=== PATIENT | female | born 1965 | race Caucasian/White ===

== ENCOUNTER 2023-11-23 22:13 | Emergency (ER) | payer SELFPAY ==
[~2023-11-23] VITALS: Ht 162.6 cm; Wt 90.0 kg
[2023-11-23 22:16] VITALS: TEMP 98.4; O2SAT 97
[2023-11-23] MEDS: KETOROLAC 30MG/ML VIAL IM ONE (22:30)
[2023-11-23] MEDS ORDERED: ALPRAZOLAM 0.5 MG TABLET PO ONE (22:30)
[2023-11-23] MEDS: ALPRAZOLAM 0.25 MG TABLET PO NR (22:45)
[2023-11-23 23:08] LABS: BASOPHILS % 0.6 % (0.0-2.0); EOSINOPHILS % 2.6 % (0.0-5.0); HEMATOCRIT. 42.2 % (36.0-48.0); HEMOGLOBIN. 14.2 g/dL (12.0-16.0); LYMPHOCYTES % 24.6 % (20.0-50.0); MEAN CORPUSCULAR HEMOGLOBIN 29.3 pg (28.0-32.0); MEAN CORPUSCULAR HGB CONC 33.6 g/dL (31.0-37.0); MEAN CORPUSCULAR VOLUME 87.1 fL (81.0-99.0); MEAN PLATELET VOLUME 8.3 fl (7.4-10.4); MONOCYTES % 7.6 % (2.0-8.0); NEUTROPHILS % 64.6 % (40.0-76.0); PLATELET 179 x1000/uL (130-400); RED BLOOD CELL COUNT 4.85 mill/uL (4.2-5.4); RED CELL DISTRIBUTION WIDTH 13.3 % (11.6-14.6); WHITE BLOOD COUNT 9.9 x1000/uL (4.5-11.0)
[2023-11-23 23:13] LABS: CHLORIDE 102 mEq/L (98-107); POTASSIUM 3.8 mEq/L (3.5-5.1); SODIUM 134 mEq/L (136-145)
[2023-11-23 23:14] LABS: CARBON DIOXIDE 24 mEq/L (21-32)
[2023-11-23 23:15] LABS: CALCIUM 10.6 mg/dL (8.7-10.4)
[2023-11-23 23:19] LABS: CREATININE 0.9 mg/dL (0.6-1.0); GLUCOSE 104 mg/dL (70-105); UREA NITROGEN BLOOD 14 mg/dL (9-23)
[2023-11-23 23:21] LABS: ETHANOL BLOOD < 10 mg/dL (<10)
[2023-11-23 23:56] VITALS: BP 157/72; PULSE 88; RESP 14
== END 2023-11-24 01:00 | disposition home or self-care (01) ==
LOC: ER 22:13
DX: F41.0 Panic disorder [episodic paroxysmal anxiety] (principal); G89.29 Other chronic pain; J45.909 Unspecified asthma, uncomplicated; Z88.6 Allergy status to analgesic agent; Z88.5 Allergy status to narcotic agent; Z88.8 Allergy status to other drugs, medicaments and biological substances
CPT/HCPCS: 80048; 80320; 85025; 36415; 96372; 99283; J1885; G0480